=== PATIENT | female | born 1980 | race American Indian/Alaskan Native ===

== ENCOUNTER 2018-04-29 21:04 | Emergency (ER) | payer SELFPAY ==
[2018-04-30] MEDS ORDERED: XYLOCAINE 1% MPF 5 mL INFILTRATI ONE (01:17)
[2018-04-30] MEDS ORDERED: ZITHROMAX PO STA (01:17)
[2018-04-30] MEDS ORDERED: ROCEPHIN IM STA (01:17)
--- NOTE | 2018-04-30 01:24 | Emergency Department Report ---
ED General Adult HPI - General Stated complaint: FB IN VAGINA Time Seen by Provider: 04/29/18 23:31 Source: patient Mode of arrival: Ambulatory Limitations: No Limitations - History of Present Illness Initial comments: 37-year-old female states she was having sex with a drug management was one time. States that the sexual encounter in which the condom had broken broken, she did not see the tip. She assumed it may have been inside of her. This occurred about 2 nights ago. She states that she was unable to emergency department with having to go to work but she has tried to locate the possible foreign body has been unable to do so, which is reason for visit today. She reports no dysuria, fever, chills, sweats. States that she has not worried about an STD Radiation: non-radiation Severity scale (0 -10): 0 Improves with: none Worsens with: none Associated Symptoms: denies other symptoms. denies: loss of appetite, malaise, rash, syncope - Related Data Previous Rx's Medication Instructions Recorded Last Taken Type metroNIDAZOLE [Flagyl] 2,000 mg PO ONCE #8 tab 04/30/18 Unknown Rx Allergies Allergy/AdvReac Type Severity Reaction Status Date / Time No Known Allergies Allergy Verified 04/29/18 21:16 ED Review of Systems ROS: Stated complaint: FB IN VAGINA Other details as noted in HPI Constitutional: denies: chills, fever Eyes: denies: eye pain, eye discharge, vision change ENT: denies: ear pain, throat pain Respiratory: denies: cough, shortness of breath, wheezing Cardiovascular: denies: chest pain, palpitations Endocrine: no symptoms reported Gastrointestinal: denies: abdominal pain, nausea, diarrhea Genitourinary: denies: urgency, dysuria, discharge Musculoskeletal: denies: back pain, joint swelling, arthralgia Skin: denies: rash, lesions Neurological: denies: headache, weakness, paresthesias Psychiatric: denies: anxiety, depression Hematological/Lymphatic: denies: easy bleeding, easy bruising ED Past Medical Hx - Past Medical History Previous Medical History?: No - Surgical History Past Surgical History?: No - Social History Smoking Status: Current Every Day Smoker Substance Use Type: None - Medications Home Medications: Home Medications Medication Instructions Recorded Confirmed Last Taken Type metroNIDAZOLE [Flagyl] 2,000 mg PO ONCE #8 tab 01/29/19 Unknown Rx ED Physical Exam - General Limitations: No Limitations General appearance: alert, in no apparent distress - Head Head exam: Present: atraumatic, normocephalic - Eye Eye exam: Present: normal appearance - ENT ENT exam: Present: mucous membranes moist - Neck Neck exam: Present: normal inspection - Respiratory Respiratory exam: Present: normal lung sounds bilaterally. Absent: respiratory distress - Cardiovascular Cardiovascular Exam: Present: regular rate, normal rhythm. Absent: systolic murmur, diastolic murmur, rubs, gallop - GI/Abdominal GI/Abdominal exam: Present: soft, normal bowel sounds. Absent: tenderness (no suprapubic tenderness), guarding, rebound - Speculum exam: Present: vaginal discharge (copious amounts of yellowish malodorous vaginal discharge.), cervical discharge. Absent: vaginal bleeding, foreign body (no foreign body was appreciated of the little for extensively after evacuating copious amounts of vaginal discharge. Patient states she's not sure that there is a foreign body she says has suspicion) - Extremities Exam Extremities exam: Present: normal inspection - Back Exam Back exam: Present: normal inspection - Neurological Exam Neurological exam: Present: alert, oriented X3 - Psychiatric Psychiatric exam: Present: normal affect, normal mood - Skin Skin exam: Present: warm, dry, intact, normal color. Absent: rash ED Course Vital Signs 04/29/18 21:11 Temperature 100.2 F H Pulse Rate 106 H Respiratory 18 Rate Blood Pressure 131/72 O2 Sat by Pulse 98 Oximetry ED Medical Decision Making - Medical Decision Making Ms. Murcia does not have a fever triage note reports that she had drank some coffee just before the temperature being taken. Temperature was reevaluated after my examination. The nurse did report it was 97.7 Critical care attestation.: If time is entered above; I have spent that time in minutes in the direct care of this critically ill patient, excluding procedure time. ED Disposition Clinical Impression: Vaginal discharge Disposition: DC-01 TO HOME OR SELFCARE Is pt being admited?: No Does the pt Need Aspirin: No Condition: Stable Instructions: Vaginitis (ED), Bacterial Vaginosis (ED) Prescriptions: metroNIDAZOLE [Flagyl] 2,000 mg PO ONCE #8 tab Referrals: TIFF CASTRO MD [Primary Care Provider] - 3-5 Days
[2018-04-30 01:37] VITALS: BP 126/68
== END 2018-04-30 01:55 | disposition home or self-care (01) ==
LOC: ED 21:04
DX: N89.8 Other specified noninflammatory disorders of vagina (principal); F17.200 Nicotine dependence, unspecified, uncomplicated
CPT/HCPCS: 96372; 99282; J0696